=== PATIENT | male | born 1960 | race Two or more races ===

== ENCOUNTER 2021-11-22 19:30 | Emergency (ER) | payer MEDICAID, OTHER ==
[~2021-11-22] VITALS: Ht 170.2 cm; Wt 88.5 kg
--- NOTE | 2021-11-22 19:45 | NUR ---
TO ER BED 15. [id number] FOUND WITH [employer] VODKA BOTTLE. PT IS ETOH [id number]. FOLLOWS SIMPLE COMMANDS. SAFETY MEASURES IN PLACE. CONNECTED TO MONITOR. AWAITING MD CASILLAS
--- NOTE | 2021-11-22 19:55 | NUR ---
IV LINE ESTABLISHED, LAC 18G. BLOOD COLLECTED AND SENT TO LAB
[2021-11-22] MEDS ORDERED: IV NS 0.9% 1,000 ML BAG IV ONE (20:00)
[2021-11-22 20:18] LABS: BASOPHILS % (AUTO) 0.2 % (0.0-2.0); EOSINOPHILS % (AUTO) 0.1 % (0.0-6.0); HEMATOCRIT 40 % (39-51); HEMOGLOBIN 13.4 g/dL (13.5-17.5); LYMPHOCYTES # (AUTO) 1.1 K/uL (0.8-4.8); LYMPHOCYTES % (AUTO) 16.8 % (20.0-44.0); MEAN CORPUSCULAR HGB CONC 34 g/dl (31.0-36.0); MEAN CORPUSCULAR VOLUME 94 fL (80-96); MONOCYTES # (AUTO) 0.4 K/uL (0.1-1.30); MONOCYTES % (AUTO) 6.3 % (2.0-12.0); NEUTROPHILS # (AUTO) 4.9 K/uL (1.8-8.9); NEUTROPHILS % (AUTO) 76.6 % (43.0-81.0); PLATELET COUNT (AUTO) 227 K/uL (150-450); RED BLOOD CELL COUNT(AUTO) 4.23 MIL/uL (4.5-6.0); WHITE BLOOD COUNT (AUTO) 6.4 K/uL (4.3-11.0)
[2021-11-22 20:43] LABS: ALBUMIN 3.9 g/dL (3.4-5.0); BILIRUBIN,DIRECT 0.1 mg/dL (0.0-0.2); BILIRUBIN,TOTAL 0.3 mg/dL (0.2-1.0); CREATININE 0.9 mg/dL (0.6-1.3); POTASSIUM 3.6 mmol/L (3.5-5.1); TOTAL PROTEIN, SERUM 7.7 g/dL (6.4-8.2)
--- NOTE | 2021-11-22 23:18 | NUR ---
PT IS SLEEPING, DROWSY UPON WAKENING. WILL CONTINUE TO MONITOR
--- NOTE | 2021-11-23 00:41 | NUR ---
PT STILL ASLEEP, CONNECTED TO MONITOR. VSS. WILL CONTINUE TO MONITOR.
--- NOTE | 2021-11-23 05:11 | NUR ---
WATER PROVIDED TO PT. WILL CONTINUE TO MONITOR
--- NOTE | 2021-11-23 05:15 | NUR ---
Pt ambualted to rest room. Noted steady on gait.
[2021-11-23] MEDS ORDERED: LEVE500T9 PO (05:17)
--- NOTE | 2021-11-23 05:18 | NUR ---
spoke and verified with pt's daugther regarding kepra refill. pt is taking kepra 500mg po bid. she also verbalized that they have an appointment with their md on the first week on December
--- NOTE | 2021-11-23 05:21 | NUR ---
Patient discharged to home in stable condition. Written and verbal after care instructions given. Patient verbalizes understanding of instruction. Pt ambulatory with a steady gait
[2021-11-23 05:28] VITALS: BP 137/80
== END 2021-11-23 05:29 | disposition home or self-care (01) ==
LOC: ER 19:31 → EDBD 19:31 → ER 11-23 05:29
DX: R41.82 Altered mental status, unspecified (principal); F10.129 Alcohol abuse with intoxication, unspecified; E86.0 Dehydration; R74.01 Elevation of levels of liver transaminase levels; Y90.8 Blood alcohol level of 240 mg/100 ml or more
CPT/HCPCS: 36415; 80048; 80076; 80320; 83690; 85025; 96360; 99283; J7030; G0480

== ENCOUNTER 2021-12-08 17:18 | Emergency (ER) | payer MEDICAID, OTHER ==
[~2021-12-08] VITALS: Ht 170.2 cm; Wt 99.8 kg
[~2021-12-08 17:18] MED LIST: LEVE500T9 PO
[2021-12-08 17:24] VITALS: BP 156/92
[2021-12-08] MEDS ORDERED: MUPI22OI2 TP (20:36)
== END 2021-12-08 21:31 | disposition home or self-care (01) ==
LOC: ER 19:46
DX: R21 Rash and other nonspecific skin eruption (principal); L73.9 Follicular disorder, unspecified; Z79.899 Other long term (current) drug therapy

== ENCOUNTER → 2022-10-19 | Emergency (ER) | payer OTHER ==
[~2022-10-19] VITALS: Ht 172.7 cm; Wt 79.4 kg
[~2022-10-19] MED LIST changes: +IV NS 0.9% 1,000 ML BAG IV ONE; +LEVETIRACETAM (250 MG) 250 MG TABLET PO ONE; +MUPI22OI2 TP
--- NOTE | 2022-10-19 10:00 | NUR ---
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
[2022-10-19 10:39] LABS: ALANINE AMINOTRANSFERASE 86 U/L (12-78); ALBUMIN 3.6 g/dL (3.4-5.0); ALCOHOL, BLOOD 464 mg/dL (0-0); ALKALINE PHOSPHATASE 85 U/L (46-116); ASPARTATE AMINOTRANSFERASE 59 U/L (15-37); BILIRUBIN,DIRECT 0.1 mg/dL (0.0-0.2); BILIRUBIN,TOTAL 0.3 mg/dL (0.2-1.0); CARBON DIOXIDE 28 mmol/L (21-32); CHLORIDE 106 mmol/L (98-107); CREATININE 0.7 mg/dL (0.6-1.3); GLUCOSE 112 mg/dL (74-106); POTASSIUM 3.8 mmol/L (3.5-5.1); SODIUM SERUM 143 mmol/L (136-145); TOTAL PROTEIN, SERUM 7.1 g/dL (6.4-8.2); UREA NITROGEN, BLOOD 9 mg/dL (7-18)
--- NOTE | 2022-10-19 11:01 | NUR ---
SWAB FOR COVID19 SENT TO LAB
[2022-10-19 11:25] LABS: BASOPHILS % (AUTO) 0.5 % (0.0-2.0); EOSINOPHILS % (AUTO) 0.7 % (0.0-6.0); HEMATOCRIT 40 % (39-51); HEMOGLOBIN 13.1 g/dL (13.5-17.5); LYMPHOCYTES # (AUTO) 1.7 K/uL (0.8-4.8); LYMPHOCYTES % (AUTO) 46.9 % (20.0-44.0); MEAN CORPUSCULAR HGB CONC 33 g/dl (31.0-36.0); MEAN CORPUSCULAR VOLUME 97 fL (80-96); MONOCYTES # (AUTO) 0.3 K/uL (0.1-1.30); MONOCYTES % (AUTO) 9.6 % (2.0-12.0); NEUTROPHILS # (AUTO) 1.5 K/uL (1.8-8.9); NEUTROPHILS % (AUTO) 42.3 % (43.0-81.0); PLATELET COUNT (AUTO) 223 K/uL (150-450); RED BLOOD CELL COUNT(AUTO) 4.09 MIL/uL (4.5-6.0); WHITE BLOOD COUNT (AUTO) 3.7 K/uL (4.3-11.0)
--- NOTE | 2022-10-19 12:30 | NUR ---
URINE SAMPLE SENT TO LAB
[2022-10-19 13:00] VITALS: BP 126/81
[2022-10-19 13:15] LABS: BILIRUBIN,URINE NEGATIVE (NEGATIVE); COLOR,URINE YELLOW (YELLOW); LEUKOCYTE ESTERASE ,URINE NEGATIVE (NEGATIVE); NITRITE, URINE NEGATIVE (NEGATIVE); PROTEIN,URINE NEGATIVE (NEGATIVE); UGLUCOSE NEGATIVE (NEGATIVE); UROBILINOGEN,URINE 0.2 EU/dL (0.2)
== END | disposition home or self-care (01) ==
LOC: ER 09:57
DX: F10.229 Alcohol dependence with intoxication, unspecified (principal); R74.01 Elevation of levels of liver transaminase levels; R40.4 Transient alteration of awareness; D72.819 Decreased white blood cell count, unspecified; D64.9 Anemia, unspecified; Z20.822 Contact with and (suspected) exposure to COVID-19; Y90.8 Blood alcohol level of 240 mg/100 ml or more
CPT/HCPCS: 99285; 96360; 93005; 71045; 70450; 85025; 80048; 80076; 81003; 36415; 87426; 80143; 80320; 80307; J7030; C9803; G0480